=== PATIENT | male | born 1940 | race Caucasian/White ===

== ENCOUNTER 2022-11-24 19:39 | Inpatient (IN) | payer MEDICARE, BC ==
[2022-11-24] MEDS: METOPROLOL TARTRATE 50 MG TAB PO SCH (22:26)
[2022-11-24] MEDS: PREGABALIN 100 MG CAP PO SCH (22:26)
[2022-11-24] MEDS: rOPINIRole HCL 4 MG TABLET PO SCH (22:26)
[2022-11-24] MEDS: CLINDAMYCIN 600 MG in DEXTROSE 5% IN WATER 50 ML IVPB SCH ×2 (22:27)
[2022-11-25] MEDS: AMPICILLIN-SULBACTAM 3 GM in SODIUM CHLORIDE 0.9% 100 ML IVPB SCH ×4 (00:35→23:57)
[2022-11-25] MEDS: HEPARIN SODIUM,PORCINE/PF 5,000 UNIT/0.5 ML SYRINGE SQ SCH ×4 (00:35→23:56)
[2022-11-25] MEDS: CLINDAMYCIN 600 MG in DEXTROSE 5% IN WATER 50 ML IVPB SCH ×6 (06:11→22:54)
[2022-11-25 07:10] LABS: Glucose,Whole Blood 132 mg/dL (70-110)
[2022-11-25] MEDS: PREGABALIN 100 MG CAP PO SCH ×2 (08:50→20:55)
[2022-11-25] MEDS: DOXAZOSIN 2 MG TAB PO SCH ×2 (08:50→20:55)
[2022-11-25] MEDS: FINASTERIDE 5 MG TAB PO SCH (08:51)
[2022-11-25] MEDS: METOPROLOL TARTRATE 50 MG TAB PO SCH ×2 (08:51→20:55)
[2022-11-25 10:01] LABS: Basophils % (A) 1 %; Eosinophils # (A) 0.2 k/uL (0-0.7); Eosinophils % (A) 2 %; HCT 33.3 % (39.0-53.0); Lymphocytes # (A) 1.4 k/uL (1.0-4.8); Lymphocytes % (A) 19 %; MCH 29.5 pg (25.0-35.0); MCHC 33.2 g/dL (31.0-37.0); Mean Platelet Volume 8.3; Monocytes # (A) 0.4 k/uL (0-1.0); Monocytes % (A) 5 %; Neutrophils # (A) 5.3 k/uL (1.3-7.7); Neutrophils % (A) 73 %; Platelet Count 166 k/uL (150-450); RBC 3.74 m/uL (4.30-5.90); RDW 14.1 % (11.5-15.5); WBC 7.3 k/uL (3.8-10.6)
[2022-11-25 10:26] LABS: ALT 29 U/L (4-49); AST 51 U/L (17-59); African American GFR (CKD) 88 (>60 ml/min/1.73 sqM); Albumin 3.6 g/dL (3.5-5.0); Albumin/Globulin Ratio 1.1; Alkaline Phosphatase 64 U/L (38-126); Anion Gap 8 mmol/L; Blood Urea Nitrogen 18 mg/dL (9-20); C Reactive Protein 4.3 mg/dL (<1.0); Calcium 8.5 mg/dL (8.4-10.2); Carbon Dioxide 25 mmol/L (22-30); Chloride 103 mmol/L (98-107); Globulin 3.4 g/dL; Glucose 150 mg/dL (74-99); Non-African American GFR(CKD) 76 (>60 ml/min/1.73 sqM); Sodium 136 mmol/L (137-145); Total Bilirubin 0.9 mg/dL (0.2-1.3)
--- NOTE | 2022-11-25 11:06 | P.CNOR ---
History of Present Illness - HPI Consult date: 11/25/22 History of present illness: This is an 82-year-old male who was transferred from [facility] for management of a left index finger infection. Patient states that he burned the left index finger around Thanksgiving and the wound has not healed. Patient states that last week he had increased swelling in the left hand, but states that the swelling is now only in the left index finger. Patient states that he has only tried topical ointments and has not been on any oral antibiotics. Patient states that he has chronic numbness in both hands and feet so he is not having any pain in the finger. Patient states that he was sent for admission to the hospital by his family doctor on 11/23/2022. Patient's past medical history is significant for atrial fibrillation, hypertension and sleep apnea. Patient is on Coumadin. Patient denies any fever/chills, weakness, tingling, abdominal pain, shortness of breath or chest pain. Review of Systems See HPI. Past Medical History Past Medical History: Atrial Fibrillation, Hypertension, Sleep Apnea/CPAP/BIPAP History of Any Multi-Drug Resistant Organisms: MRSA Year Discovered:: Unkown MDRO Source:: left foot Past Surgical History: Hernia Repair, Orthopedic Surgery Additional Past Surgical History / Comment(s): bilateral knee sx, skin ca removal, back sx Past Anesthesia/Blood Transfusion Reactions: No Reported Reaction Past Psychological History: No Psychological Hx Reported Smoking Status: Never smoker Past Alcohol Use History: None Reported Past Drug Use History: None Reported Medications and Allergies Home Medications Medication Instructions Recorded Confirmed Type Benazepril [Lotensin] 5 mg PO DAILY 11/24/22 11/24/22 History Doxazosin [Cardura] 2 mg PO BID 11/24/22 11/24/22 History Ergocalciferol (Vitamin D2) 1,250 mcg PO QMONTHLY 11/24/22 11/24/22 History [Drisdol (50,000 Iu)] Finasteride [Proscar] 5 mg PO DAILY 11/24/22 11/24/22 History Metoprolol Tartrate [Lopressor] 50 mg PO BID 11/24/22 11/24/22 History Multivit-Min/FA/Lycopen/Lutein 1 tab PO DAILY 11/24/22 11/24/22 History [Centrum Silver Men Tablet] [place]-3/Dha/Epa/Fish Oil [Fish Oil 1 cap PO DAILY@1700 11/24/22 11/24/22 History 1,000 mg Softgel] Potassium Chloride 20 meq PO DAILY 11/24/22 11/24/22 History Pregabalin [Lyrica] 100 mg PO BID 11/24/22 11/24/22 History Warfarin Sodium 6 mg PO DAILY@1700 11/24/22 11/24/22 History rOPINIRole HCL [Requip] 5 mg PO HS 11/24/22 11/24/22 History Allergies Allergy/AdvReac Type Severity Reaction Status Date / Time No Known Allergies Allergy Verified 11/24/22 21:33 Physical Examination On exam patient is sitting in a chair comfortably in no acute distress. There is an open wound with foul-smelling purulent drainage at the distal aspect of the left index finger. There is swelling of the entire left index finger with some erythema and desquamation as well. There is no swelling of the left hand. Patient is able to actively flex and extend the left index finger. Patient has decreased sensation to the fingers of the left hand. Sensation intact to the proximal aspect of the left hand. Results An x-ray report of the left index finger dated 11/23/2022 reveals: There is absence of the soft tissues of the distal tuft of the index finger, with direct exposure of the distal phalanx tuft to the atmosphere. There is associated soft tissue emphysema along the palmar aspect of the distal phalanx tuft. There is extensive soft tissue swelling circumferentially involving the index finger. There are no radiopaque bodies. There is focal osteopenia involving the distal one half the distal phalanx of the index finger, including cam cortical disruption of the components of the tuft, suggesting infection. X-ray images are not available to review yet and are currently being uploaded. - Labs Labs: Abnormal Lab Results - Last 24 Hours (Table) 11/25/22 11/25/22 11/25/22 Range/Units 07:08 09:47 09:47 RBC 3.74 L (4.30-5.90) m/uL Hgb 11.0 L (13.0-17.5) gm/dL Hct 33.3 L (39.0-53.0) % Sodium 136 L (137-145) mmol/L Glucose 150 H (74-99) mg/dL POC Glucose (mg/dL) 132 H (70-110) mg/dL C-Reactive Protein 4.3 H (<1.0) mg/dL H & H 11/25/22 Range/Units 09:47 Hgb 11.0 L (13.0-17.5) gm/dL Hct 33.3 L (39.0-53.0) % Result Diagrams: 11/25/22 09:47 11/25/22 09:47 Assessment and Plan (1) Abscess of right index finger Current Visit: Yes Status: Acute Code(s): L02.511 - CUTANEOUS ABSCESS OF RIGHT HAND SNOMED Code(s): 10100151 Plan: 1. X-ray images are currently being uploaded. 2. Wound care and antibiotic recommendations per infectious disease. 3. Patient's Coumadin is being held. 4. Planning for partial amputation of second digit left hand by Dr. Fleming on 11/26/2022 pending medical clearance and patient consent.
[2022-11-25 11:34] LABS: Glucose,Whole Blood 104 mg/dL (70-110)
[2022-11-25 11:37] LABS: Erythrocyte Sedimentation Rate 52 mm/hr (0-15)
[2022-11-25 17:08] LABS: Glucose,Whole Blood 138 mg/dL (70-110)
[2022-11-25] MEDS: rOPINIRole HCL 4 MG TABLET PO SCH (20:55)
[2022-11-25 21:26] LABS: Glucose,Whole Blood 145 mg/dL (70-110)
--- NOTE | 2022-11-25 23:15 | HP ---
HISTORY AND PHYSICAL CHIEF COMPLAINT: Necrotic abscess, cellulitis, and osteomyelitis of the tip of the left index finger. HISTORY OF PRESENT ILLNESS: This gentleman was transferred from [facility] after he was admitted when he presented to the office for necrosis of soft tissue at the end of the left index finger with secondary infection and osteomyelitis. There was no Hand Surgery available at that institution. Review of systems, past medical history, family history, personal and social histories are all found in detail in his transfer documents. 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 PHYSICAL EXAMINATION: VITAL SIGNS: Blood pressure 131/80 with a pulse of 79, respirations of 20, and he is afebrile. GENERAL: He appeared to be obese, in no acute distress. SKIN: Color is normal. Skin is warm and dry. LYMPHATICS: Lymph nodes are not enlarged. HEAD, EARS, EYES, NOSE, MOUTH AND THROAT: Normal. CHEST: Clear. CARDIAC: Demonstrates atrial fibrillation. ABDOMEN: Soft and nontender. EXTREMITIES: Normal except for the left index finger, which is dressed. NEUROLOGIC: Intact except for right lower extremity drop foot. IMPRESSION: 1. Necrosis of the tip of the left index finger with osteomyelitis and cellulitis. 2. Type 2 diabetes. 3. Atrial fibrillation. 4. Hypertension. 5. 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 PLAN: 1. Bedrest. 2. IV fluids. 3. Consult with Infectious Disease and Surgery. MMODL / IJN: [id number] /
[2022-11-25] MEDS ORDERED: VANCOMYCIN IV PER PHARMACY 1 EACH MISC MISCELLANE PRN (23:41)
--- NOTE | 2022-11-25 23:45 | P.CONS ---
History of Present Illness - Reason for Consult Consult date: 11/25/22 Osteomyelitis Requesting physician: Fabio Fox - Chief Complaint Left index finger wound swelling and redness x weeks - History of Present Illness Patient is a 82-year male with a past medical history pertinent for atrial fibrillation hypertension sleep apnea patient apparently mention he did not have a sensation to his fingertips and apparently bone the left index finger around Thanksgiving and the patient did not have healing of the wound since then over the last 1 week the patient noticed to have increasing swelling in his left hand and significant swelling involving the left index finger and some drainage from the tip of his left index finger patient apparently has been treated with local treatment without any improvement patient was evaluated at [facility] and subsequently patient has been referred to the [facility] to be evaluated by hand surgeon and consult was placed to infectious disease for management of present by therapy patient is currently on combination of clindamycin and Unasyn, as mentioned earlier the patient mention did not have good sensation to his hands hands denies significant pain he did have swelling redness and some drainage but denies have any foul-smelling Review of Systems Positive point has been mentioned in the HPI rest of the systems are negative Past Medical History Past Medical History: Atrial Fibrillation, Hypertension, Sleep Apnea/CPAP/BIPAP History of Any Multi-Drug Resistant Organisms: MRSA Year Discovered:: Unkown MDRO Source:: left foot Past Surgical History: Hernia Repair, Orthopedic Surgery Additional Past Surgical History / Comment(s): bilateral knee sx, skin ca removal, back sx Past Anesthesia/Blood Transfusion Reactions: No Reported Reaction Past Psychological History: No Psychological Hx Reported Smoking Status: Never smoker Past Alcohol Use History: None Reported Past Drug Use History: None Reported Medications and Allergies Home Medications Medication Instructions Recorded Confirmed Type Benazepril [Lotensin] 5 mg PO DAILY 11/24/22 11/24/22 History Doxazosin [Cardura] 2 mg PO BID 11/24/22 11/24/22 History Ergocalciferol (Vitamin D2) 1,250 mcg PO QMONTHLY 11/24/22 11/24/22 History [Drisdol (50,000 Iu)] Finasteride [Proscar] 5 mg PO DAILY 11/24/22 11/24/22 History Metoprolol Tartrate [Lopressor] 50 mg PO BID 11/24/22 11/24/22 History Multivit-Min/FA/Lycopen/Lutein 1 tab PO DAILY 11/24/22 11/24/22 History [Centrum Silver Men Tablet] [place]-3/Dha/Epa/Fish Oil [Fish Oil 1 cap PO DAILY@1700 11/24/22 11/24/22 History 1,000 mg Softgel] Potassium Chloride 20 meq PO DAILY 11/24/22 11/24/22 History Pregabalin [Lyrica] 100 mg PO BID 11/24/22 11/24/22 History Warfarin Sodium 6 mg PO DAILY@1700 11/24/22 11/24/22 History rOPINIRole HCL [Requip] 5 mg PO HS 11/24/22 11/24/22 History Chlorthalidone [Hygroton] 25 mg PO DAILY 11/25/22 11/25/22 History Omeprazole [PriLOSEC] 20 mg PO AC-BRKFST 11/25/22 11/25/22 History Cephalexin [Keflex] 500 mg PO Q6HR 14 Days #56 cap 11/29/22 Rx Allergies Allergy/AdvReac Type Severity Reaction Status Date / Time No Known Allergies Allergy Verified 11/24/22 21:33 Physical Exam Vitals: Vital Signs Temp Pulse Resp BP Pulse Ox 11/25/22 07:11 97.3 F L 78 18 108/64 97 11/25/22 01:37 98.6 F 79 16 99/69 96 11/24/22 22:33 117 H 127/83 11/24/22 19:39 97.5 F L 70 15 109/75 96 Intake and Output 11/24/22 11/25/22 11/25/22 22:59 06:59 14:59 Output Total 200 550 Balance -200 -550 Output: Urine 200 550 Other: Weight 149.5 kg GENERAL DESCRIPTION: An elderly male lying in bed, no distress. No tachypnea or accessory muscle of respiration use. HEENT: Shows Pallor , no scleral icterus. Oral mucous membrane is dry. No pharyngeal erythema or thrush NECK: Trachea central, no thyromegaly. LUNGS: Unlabored breathing. Clear to auscultation anteriorly. No wheeze or crackle. HEART: S1, S2, regular rate and rhythm. No loud murmur ABDOMEN: Soft, no tenderness , guarding or rigidity, no organomegaly EXTREMITIES: Left index finger wound on the tip with swelling redness and drainage which was cultured SKIN: No rash, no masses palpable. NEUROLOGICAL: The patient is awake, alert, oriented x3, mood and affect normal. Results CBC & Chem 7: 11/25/22 09:47 11/29/22 07:20 Labs: Abnormal Lab Results - Last 24 Hours (Table) 11/25/22 Range/Units 07:08 POC Glucose (mg/dL) 132 H (70-110) mg/dL Assessment and Plan (1) Abscess of left index finger Status: Acute Code(s): L02.512 - CUTANEOUS ABSCESS OF LEFT HAND SNOMED Code(s): 85620645 Plan: 1patient presented to hospital with a nonhealing wound to the tip of his left index finger with an injury that he sustained around and has been there for more than 2 months now did have a deep wound with purulent drainage which has been culture and concern for underlying osteomyelitis. 2I did obtain deep culture to guide antibiotic therapy and also obtain blood culture CRP and a sed rate 3-discontinue clindamycin and adjust the dose of Unasyn to 3 g every 6 hours add vancomycin while waiting for the culture to finalize 4-Ortho has seen the patient recommending possible debridement and deep culture in the morning We will follow on clinical condition and cultures to further adjust medication if needed Thank you for this consultation we will follow the patient along with you Time with Patient: Greater than 30
--- NOTE | 2022-11-25 23:46 | PN ---
PROGRESS NOTE CHIEF COMPLAINT: Necrotic soft tissue infection of the tip of the left index finger with osteomyelitis and cellulitis. HISTORY OF PRESENT ILLNESS: This gentleman is comfortable and doing well. He is on IV antibiotics and he is yet to be seen by surgery. PHYSICAL EXAMINATION: CHEST: Clear. CARDIAC: Normal. ABDOMEN: Soft and nontender. EXTREMITIES: Left index finger is dressed. IMPRESSION: Cellulitis, abscess, necrosis, and osteomyelitis of the left index finger. PLAN: Continue with IV fluids and antibiotics and await. Consult from Hand Surgery and Infectious Disease. MMODL / IJN: [id number] /
[2022-11-26] MEDS ORDERED: VANCOMYCIN 2,500 MG in SODIUM CHLORIDE 0.9% 500 ML 500 ML IVPB ONE (01:00)
[2022-11-26] MEDS: AMPICILLIN-SULBACTAM 3 GM in SODIUM CHLORIDE 0.9% 100 ML IVPB SCH ×4 (06:06→23:56)
[2022-11-26 07:10] LABS: Glucose,Whole Blood 119 mg/dL (70-110)
[2022-11-26] MEDS ORDERED: LIDOCAINE 2% INJ 20 MG/ML (2 ML VIAL) ONE (08:05)
[2022-11-26] MEDS ORDERED: PHENYLEPHRINE-0.9% NACL SYG 1,000 MCG/10 ML SYRINGE ONE (08:05)
[2022-11-26] MEDS ORDERED: ONDANSETRON 4 MG/2 ML VIAL ONE (08:05)
[2022-11-26] MEDS ORDERED: PROPOFOL 10 MG/ML 20 ML VIAL IV ONE (08:05)
[2022-11-26] MEDS ORDERED: LACTATED RINGERS 1,000 ML IV ONE ×2 (08:10→08:31)
[2022-11-26] MEDS ORDERED: BUPIVACAINE (PF) 0.25% 30 ML VIAL SQ ONE (08:34)
[2022-11-26] MEDS ORDERED: ACETAMINOPHEN IV (For NPO) 1,000 MG/100 ML VIAL IVPB ONE (09:24)
[2022-11-26] MEDS: HEPARIN SODIUM,PORCINE/PF 5,000 UNIT/0.5 ML SYRINGE SQ SCH ×3 (09:40→23:56)
[2022-11-26] MEDS: DOXAZOSIN 2 MG TAB PO SCH ×2 (10:11→21:23)
[2022-11-26] MEDS: PREGABALIN 100 MG CAP PO SCH ×2 (10:12→21:23)
[2022-11-26] MEDS: FINASTERIDE 5 MG TAB PO SCH (10:12)
[2022-11-26] MEDS: METOPROLOL TARTRATE 50 MG TAB PO SCH ×2 (10:12→21:23)
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
[2022-11-26 11:13] LABS: Glucose,Whole Blood 190 mg/dL (70-110)
[2022-11-26] MEDS ORDERED: HYDROmorphone 0.5 MG/0.5 ML SYRINGE IVP PRN ×3 (11:13)
[2022-11-26] MEDS ORDERED: ONDANSETRON 4 MG/2 ML VIAL IVP PRN (11:13)
[2022-11-26] MEDS ORDERED: HYDROcodone/APAP 5-325MG 1 EACH TAB PO PRN ×2 (11:13)
[2022-11-26] MEDS ORDERED: diphenhydrAMINE 25 MG CAP PO PRN (11:13)
[2022-11-26] MEDS: VANCOMYCIN 2,500 MG in SODIUM CHLORIDE 0.9% 500 ML 500 ML IVPB SCH (13:11)
[2022-11-26 17:14] LABS: Glucose,Whole Blood 126 mg/dL (70-110)
--- NOTE | 2022-11-26 17:43 | P.PN ---
Subjective Progress Note Date: 11/26/22 Principal diagnosis: Left index finger tip infection Patient is a 82-year male with a past medical history pertinent for atrial fibrillation hypertension sleep apnea patient apparently mention he did not have a sensation to his fingertips, presented to the hospital with a nonhealing wound to the tip of his left index finger in this patient who is status post amputation of the distal phalanx by orthopedics completed 11/26/2022 On today's evaluation that is 11/26/2022, the patient denies having any fever or any chills, the patient denies pain to his left index finger denies any chest pain shortness of breath or cough no abdominal pain no diarrhea Objective - Vital Signs Vital signs: Vital Signs Temp 97.1 F L 11/26/22 09:01 Pulse 65 11/26/22 09:16 Resp 16 11/26/22 09:16 BP 127/72 11/26/22 09:16 Pulse Ox 96 11/26/22 09:16 FiO2 Intake & Output 11/25/22 11/26/22 11/26/22 18:59 06:59 18:59 Intake Total 500 Output Total 200 10 Balance -200 490 Intake: IV 500 Output: Urine 200 Estimated Blood Loss 10 Other: # Voids 1 # Bowel Movements 1 - Exam GENERAL DESCRIPTION: An elderly male lying in bed in no distress RESPIRATORY SYSTEM: Unlabored breathing , decreased breath sounds at bases HEART: S1 S2 regular rate and rhythm , ABDOMEN: Soft , no tenderness EXTREMITIES: Left index finger distal phalanx amputation site wound is currently dressed no drainage on the dressing - Labs CBC & Chem 7: 11/25/22 09:47 11/25/22 09:47 Labs: Abnormal Lab Results - Last 24 Hours (Table) 11/25/22 11/25/22 11/25/22 Range/Units 09:47 09:47 09:47 RBC 3.74 L (4.30-5.90) m/uL Hgb 11.0 L (13.0-17.5) gm/dL Hct 33.3 L (39.0-53.0) % ESR 52 H (0-15) mm/hr Sodium 136 L (137-145) mmol/L Glucose 150 H (74-99) mg/dL POC Glucose (mg/dL) (70-110) mg/dL Hemoglobin A1c 6.5 H (0.0-6.0) % C-Reactive Protein 4.3 H (<1.0) mg/dL 11/25/22 11/25/22 11/26/22 Range/Units 17:07 21:23 07:09 RBC (4.30-5.90) m/uL Hgb (13.0-17.5) gm/dL Hct (39.0-53.0) % ESR (0-15) mm/hr Sodium (137-145) mmol/L Glucose (74-99) mg/dL POC Glucose (mg/dL) 138 H 145 H 119 H (70-110) mg/dL Hemoglobin A1c (0.0-6.0) % C-Reactive Protein (<1.0) mg/dL Microbiology - Last 24 Hours (Table) 11/25/22 09:50 Wound Culture - Preliminary Finger - Left Second Assessment and Plan (1) Abscess of left index finger Current Visit: Yes Status: Acute Code(s): L02.512 - CUTANEOUS ABSCESS OF LEFT HAND SNOMED Code(s): 59137149 Plan: 1patient presented to hospital with a nonhealing wound to the tip of his left index finger with an injury that he sustained around and has been there for more than 2 months now did have a deep wound with purulent drainage which has been culture and concern for underlying osteomyelitis. 2patient is status post amputation of the distal phalanx with infected part removed and the patient remains to be afebrile may not need long-term IV antibiotics, this was explained to the family at the bedside 3Patient to continue with Unasyn to 3 g every 6 hours add vancomycin while waiting for the culture to finalize Time with Patient: Less than 30
[2022-11-26] MEDS: rOPINIRole HCL 4 MG TABLET PO SCH (21:23)
[2022-11-26 21:35] LABS: Glucose,Whole Blood 118 mg/dL (70-110)
--- NOTE | 2022-11-27 00:41 | PN ---
PROGRESS NOTE CHIEF COMPLAINT: Abscess necrosis of the left index finger with osteomyelitis. HISTORY OF PRESENT ILLNESS: This gentleman was taken to the operating room today for a resection of a portion of the end of the index finger with flap formation. PHYSICAL EXAMINATION: CHEST: Clear. CARDIAC: Normal. ABDOMEN: Protuberant, soft, and nontender. IMPRESSION: Osteomyelitis, cellulitis, and abscess of the left distal index finger. PLAN: Continue with IV antibiotics and postop management. He will probably have to be in the hospital for another day or 2 and might be a candidate for long-term IV antibiotics as an outpatient. MMODL / IJN: [id number] /
[2022-11-27] MEDS: VANCOMYCIN 2,500 MG in SODIUM CHLORIDE 0.9% 500 ML 500 ML IVPB SCH ×2 (01:32→13:59)
[2022-11-27] MEDS: AMPICILLIN-SULBACTAM 3 GM in SODIUM CHLORIDE 0.9% 100 ML IVPB SCH ×4 (06:14→23:27)
[2022-11-27 07:46] LABS: Glucose,Whole Blood 111 mg/dL (70-110)
[2022-11-27] MEDS: METOPROLOL TARTRATE 50 MG TAB PO SCH ×2 (09:16→20:29)
[2022-11-27] MEDS: HEPARIN SODIUM,PORCINE/PF 5,000 UNIT/0.5 ML SYRINGE SQ SCH ×3 (09:16→23:27)
[2022-11-27] MEDS: FINASTERIDE 5 MG TAB PO SCH (09:16)
[2022-11-27] MEDS: PREGABALIN 100 MG CAP PO SCH ×2 (09:17→20:29)
[2022-11-27] MEDS: DOXAZOSIN 2 MG TAB PO SCH ×2 (09:17→20:29)
--- NOTE | 2022-11-27 10:24 | P.PN ---
Subjective Progress Note Date: 11/27/22 Principal diagnosis: Osteomyelitis left index finger. Status post amputation through middle phalanx left index finger. This is an 82-year-old male who is status post amputations through the middle phalanx of the left index finger for wet gangrene and osteomyelitis to the distal phalanx. He is doing well from an orthopedic standpoint. He has no new complaints or concerns today. Vital signs are stable. Objective - Vital Signs Vital signs: Vital Signs Temp 97.6 F 11/27/22 07:17 Pulse 95 11/27/22 07:17 Resp 18 11/27/22 07:17 BP 107/55 11/27/22 07:17 Pulse Ox 97 11/27/22 07:17 FiO2 Intake & Output 11/26/22 11/27/22 11/27/22 18:59 06:59 18:59 Intake Total 600 450 Output Total 10 Balance 590 450 Intake: IV 600 Oral 450 Output: Estimated Blood Loss 10 Other: # Voids 2 3 # Bowel Movements 1 1 - Exam This is a pleasant 82-year-old male in no acute distress. He is alert and oriented 3. Exam of the left hand feels that his incision to the index finger looks good. There is mild resolving erythema to the finger. He has full flexion to the PIP and MCP joints. Normal motion to the ring fingers. There is a burn noted to the fingers on the right hand. No erythema noted. He has decreased sensation to the finger secondary to neuropathy. - Labs CBC & Chem 7: 11/25/22 09:47 11/25/22 09:47 Labs: Abnormal Lab Results - Last 24 Hours (Table) 11/26/22 11/26/22 11/26/22 Range/Units 11:11 17:13 21:16 POC Glucose (mg/dL) 190 H 126 H 118 H (70-110) mg/dL 11/27/22 Range/Units 07:30 POC Glucose (mg/dL) 111 H (70-110) mg/dL Microbiology - Last 24 Hours (Table) 11/26/22 08:56 Fungal Culture - Preliminary Finger - Left Second 11/26/22 08:56 Anaerobic Culture - Preliminary Finger - Left Second 11/26/22 08:56 Tissue Culture - Preliminary Finger - Left Second 11/26/22 08:56 Acid Fast Bacilli Culture - Preliminary Finger - Left Second 11/25/22 09:47 Blood Culture - Preliminary Blood No Growth after 24 hours Assessment and Plan (1) Status post amputation of finger of left hand Current Visit: Yes Status: Acute Code(s): Z89.022 - ACQUIRED ABSENCE OF LEFT FINGER(S) SNOMED Code(s): 04216387025461025 (2) Abscess of left index finger Current Visit: Yes Status: Acute Code(s): L02.512 - CUTANEOUS ABSCESS OF LEFT HAND SNOMED Code(s): 62212031 Plan: The clinical findings are discussed with the patient. He will continue daily dr yasiring changes to the left index finger. It is recommended he have wound care evaluation to the right hand for the burn. He may be discharged to home from an orthopedic standpoint. He is follow-up in 10 days.
[2022-11-27 11:13] LABS: Glucose,Whole Blood 174 mg/dL (70-110)
[2022-11-27 12:13] LABS: African American GFR (CKD) 71.1 (60.0-200.0); Non-African American GFR(CKD) 61.3 (60.0-200.0)
--- NOTE | 2022-11-27 12:32 | P.PN ---
Subjective Progress Note Date: 11/27/22 Principal diagnosis: Left index finger tip infection Patient is a 82-year male with a past medical history pertinent for atrial fibrillation hypertension sleep apnea patient apparently mention he did not have a sensation to his fingertips, presented to the hospital with a nonhealing wound to the tip of his left index finger in this patient who is status post amputation of the distal phalanx by orthopedics completed 11/26/2022 On today's evaluation that is 11/27/2022, the patient remains to be afebrile, the patient denies pain to his left index finger distal phalanx amputation site, the patient denies any chest pain shortness of breath or cough no abdominal pain no diarrhea Objective - Vital Signs Vital signs: Vital Signs Temp 97.6 F 11/27/22 07:17 Pulse 95 11/27/22 07:17 Resp 18 11/27/22 07:17 BP 107/55 11/27/22 07:17 Pulse Ox 97 11/27/22 07:17 FiO2 Intake & Output 11/26/22 11/27/22 11/27/22 18:59 06:59 18:59 Intake Total 600 450 Output Total 10 Balance 590 450 Intake: IV 600 Oral 450 Output: Estimated Blood Loss 10 Other: # Voids 2 3 # Bowel Movements 1 1 - Exam GENERAL DESCRIPTION: An elderly male lying in bed in no distress RESPIRATORY SYSTEM: Unlabored breathing , decreased breath sounds at bases HEART: S1 S2 regular rate and rhythm , ABDOMEN: Soft , no tenderness EXTREMITIES: Left index finger distal phalanx amputation site wound is currently dressed no drainage on the dressing, review of Ortho-Note mention incision site looks clean - Labs CBC & Chem 7: 11/25/22 09:47 11/27/22 06:46 Labs: Abnormal Lab Results - Last 24 Hours (Table) 11/26/22 11/26/22 11/26/22 Range/Units 11:11 17:13 21:16 POC Glucose (mg/dL) 190 H 126 H 118 H (70-110) mg/dL 11/27/22 Range/Units 07:30 POC Glucose (mg/dL) 111 H (70-110) mg/dL Microbiology - Last 24 Hours (Table) 11/26/22 08:56 Fungal Culture - Preliminary Finger - Left Second 11/26/22 08:56 Anaerobic Culture - Preliminary Finger - Left Second 11/26/22 08:56 Tissue Culture - Preliminary Finger - Left Second 11/26/22 08:56 Acid Fast Bacilli Culture - Preliminary Finger - Left Second 11/25/22 09:47 Blood Culture - Preliminary Blood No Growth after 24 hours Assessment and Plan (1) Abscess of left index finger Current Visit: Yes Status: Acute Code(s): L02.512 - CUTANEOUS ABSCESS OF LEFT HAND SNOMED Code(s): 39154479 Plan: 1patient presented to hospital with a nonhealing wound to the tip of his left index finger with an injury that he sustained around and has been there for more than 2 months now did have a deep wound with purulent drainage which has been culture and concern for underlying osteomyelitis. 2patient is status post amputation of the distal phalanx with infected part removed and the cultures are currently pending 3Patient to continue with Unasyn to 3 g every 6 hours add vancomycin while waiting for the culture to finalize, to determine his discharge antibiotics Time with Patient: Less than 30
[2022-11-27 17:16] LABS: Glucose,Whole Blood 151 mg/dL (70-110)
[2022-11-27 20:27] LABS: Glucose,Whole Blood 165 mg/dL (70-110)
[2022-11-27] MEDS: rOPINIRole HCL 4 MG TABLET PO SCH (20:29)
[2022-11-28] MEDS: VANCOMYCIN 2,500 MG in SODIUM CHLORIDE 0.9% 500 ML 500 ML IVPB SCH (01:52)
[2022-11-28] MEDS: AMPICILLIN-SULBACTAM 3 GM in SODIUM CHLORIDE 0.9% 100 ML IVPB SCH ×2 (06:14→11:48)
[2022-11-28 06:57] LABS: Glucose,Whole Blood 114 mg/dL (70-110)
[2022-11-28] MEDS: DOXAZOSIN 2 MG TAB PO SCH ×2 (08:42→20:44)
[2022-11-28] MEDS: HEPARIN SODIUM,PORCINE/PF 5,000 UNIT/0.5 ML SYRINGE SQ SCH ×3 (08:42→23:48)
[2022-11-28] MEDS: PREGABALIN 100 MG CAP PO SCH ×2 (08:43→20:44)
[2022-11-28] MEDS: FINASTERIDE 5 MG TAB PO SCH (08:43)
[2022-11-28] MEDS: METOPROLOL TARTRATE 50 MG TAB PO SCH ×2 (08:44→20:44)
[2022-11-28 11:04] LABS: Glucose,Whole Blood 211 mg/dL (70-110)
[2022-11-28] MEDS ORDERED: VANCOMYCIN TROUGH DUE 1 EACH MISC MISCELLANE ONE (12:00)
[2022-11-28 17:13] LABS: Glucose,Whole Blood 179 mg/dL (70-110)
[2022-11-28 20:32] LABS: Glucose,Whole Blood 119 mg/dL (70-110)
[2022-11-28] MEDS: rOPINIRole HCL 4 MG TABLET PO SCH (20:44)
--- NOTE | 2022-11-28 22:42 | P.PN ---
Subjective Progress Note Date: 11/28/22 Principal diagnosis: Left index finger tip infection Patient is a 82-year male with a past medical history pertinent for atrial fibrillation hypertension sleep apnea patient apparently mention he did not have a sensation to his fingertips, presented to the hospital with a nonhealing wound to the tip of his left index finger in this patient who is status post amputation of the distal phalanx by orthopedics completed 11/26/2022 On today's evaluation that is 11/28/2022, the patient continues to be afebrile, the patient denies pain to his left index finger distal phalanx amputation site, the patient denies any chest pain shortness of breath or cough no abdominal pain no diarrhea, feeling better no new symptoms Objective - Vital Signs Vital signs: Vital Signs Temp 97.5 F L 11/28/22 07:22 Pulse 64 11/28/22 07:22 Resp 18 11/28/22 07:22 BP 106/73 11/28/22 07:22 Pulse Ox 95 11/28/22 07:22 FiO2 Intake & Output 11/27/22 11/28/22 11/28/22 18:59 06:59 18:59 Intake Total 400 Output Total 900 Balance -500 Intake: Oral 400 Output: Urine 900 Other: # Voids 1 3 # Bowel Movements 1 1 1 - Exam GENERAL DESCRIPTION: An elderly male lying in bed in no distress RESPIRATORY SYSTEM: Unlabored breathing , decreased breath sounds at bases HEART: S1 S2 regular rate and rhythm , ABDOMEN: Soft , no tenderness EXTREMITIES: Left index finger distal phalanx amputation site wound is currently stitched minimal swelling no redness or drainage - Labs CBC & Chem 7: 11/25/22 09:47 11/28/22 06:56 Labs: Abnormal Lab Results - Last 24 Hours (Table) 11/27/22 11/27/22 11/27/22 Range/Units 11:08 17:11 20:04 POC Glucose (mg/dL) 174 H 151 H 165 H (70-110) mg/dL 11/28/22 Range/Units 06:55 POC Glucose (mg/dL) 114 H (70-110) mg/dL Microbiology - Last 24 Hours (Table) 11/26/22 08:56 Gram Stain - Preliminary Finger - Left Second Tissue Culture - Preliminary Presumptive Staph aureus 11/25/22 09:50 Gram Stain - Preliminary Finger - Left Second Wound Culture - Preliminary Presumptive Staph aureus 11/25/22 09:47 Blood Culture - Preliminary Blood No Growth after 48 hours 11/26/22 08:56 Fungal Culture - Preliminary Finger - Left Second 11/26/22 08:56 Anaerobic Culture - Preliminary Finger - Left Second 11/26/22 08:56 Acid Fast Bacilli Culture - Preliminary Finger - Left Second Assessment and Plan (1) Abscess of left index finger Current Visit: Yes Status: Acute Code(s): L02.512 - CUTANEOUS ABSCESS OF LEFT HAND SNOMED Code(s): 34877957 Plan: 1patient presented to hospital with a nonhealing wound to the tip of his left index finger with an injury that he sustained around and has been there for more than 2 months now did have a deep wound with purulent drainage which has been culture and concern for underlying osteomyelitis. 2patient is status post amputation of the distal phalanx with infected part removed and the cultures are currently growing staph aureus with sensitivities pending 3Patient to continue with Unasyn to 3 g every 6 hours and vancomycin while waiting for the culture to finalize, discharge antibiotics on the basis of final cultures Time with Patient: Less than 30
[2022-11-29 07:08] LABS: Glucose,Whole Blood 110 mg/dL (70-110)
[2022-11-29] MEDS: HEPARIN SODIUM,PORCINE/PF 5,000 UNIT/0.5 ML SYRINGE SQ SCH ×2 (08:39→15:14)
--- NOTE | 2022-11-29 08:42 | CDI ---
Documentation Clarification Form Date: 11/29/2022 From: Makenzie Torres RN,CCDS Admit Date: 11/24/2022 7:39:00 PM Patient Name: Brandt Ricks Visit Number: [id number] Discharge Date: ATTENTION: The Clinical Documentation Specialists (CDI) and [facility] Coding Staff appreciate your assistance in clarifying documentation. Please respond to the clarification below the line at the bottom and electronically sign. The CDI & [facility] Coding staff will review the response and follow-up if needed. Please note: Queries are made part of the Legal Health Record. If you have any questions, please contact the author of this message via ITS. Dr. Luis Fleming Osteomyelitis is documented in the progress note starting 11/27/22. Additional clarification regarding the cause and acuity of the osteomyelitis is requested. 11/24 Vital signs: 109/74 70 15 97.5 96 % RA History/Risk Factors: Atrial Fibrillation, Hypertension, Sleep apnea Clinical Indicators: 82-year-old male states he burned the left index finger around Thanksgiving, wound has not healed. 11/25Labs: WBC 7.3 HGB 11.0, ESR 52, [id number] Protein 4.3 X-Ray Results: (orthopedic consult 11/25/22) left index finger dated 11/23/2022: There is absence of the soft tissues of the distal tuft of the index finger, with direct exposure of the distal phalanx tuft to the atmosphere. There is associated soft tissue emphysema along the palmar aspect of the distal phalanx tuft. There is focal osteopenia involving the distal one half the distal phalanx of the index finger, including cam cortical disruption of the components of the tuft, suggesting infection. Treatment: Left index finger amputation through middle phalanx Cefazolin Sodium 2 GM IVPB Q 8 HRS 11/28 Vancomycin HCL 2,500MG IVPB Once PTD 11/26-11/26 change to 2,000MG IVPB Q 12 11/26-11/28 Silvadene Cream topical daily 11/27-11/28 Clindamycin Phosphate 600MG IVPB Q8HR 11/24-11/25 Unasyn3 GM IVPB Q8 HR 11/25-11/28 Please clarify the acuity of the osteomyelitis, if known: Acuity: [ ] Acute osteomyelitis [ ] Chronic osteomyelitis [ x ] Subacute osteomyelitis [ ] Unable to Determine (Template Last Revised: December 2020) MTDD
--- NOTE | 2022-11-29 09:18 | CDI ---
Documentation Clarification Form Date: 11/29/2022 9:07:29 AM From: Makenzie Torres RN, CCDS Admit Date: 11/24/2022 7:39:00 PM Patient Name: Brandt Ricks Visit Number: [id number] Discharge Date: ATTENTION: The Clinical Documentation Specialists (CDI) and [facility] Coding Staff appreciate your assistance in clarifying documentation. Please respond to the clarification below the line at the bottom and electronically sign. The CDI & [facility] Coding staff will review the response and follow-up if needed. Please note: Queries are made part of the Legal Health Record. If you have any questions, please contact the author of this message via ITS. Dr. Fabio Fox Atrial Fibrillation is documented past medial history H/P and subsequent progress notes. Additional clarification regarding the type of atrial fibrillation is requested. History/Risk Factors: Atrial fibrillation, Type 2 Diabetes Mellitus, Hypertension Clinical Indicators: 82-year-old male present with necrosis, abscess of soft tissue at the end of the left index finger with secondary infection and osteomyelitis. He has a history of atrial fibrillation with ongoing treatment. Treatment: Coumadin (held per orders) Please clarify the type of atrial fibrillation, if known: [ ] Chronic [ ] Permanent [ ] Paroxysmal [ ] Persistent [ ] Other, please specify [ ] Unable to determine (Template Last Revised: February 2021) MISCELLANOUS REPORT Chronic atrial fibrillation. MMODL / IJN: [id number] / Dictated By: Fabio Fox MD Signed By: DD/ 09 TD/TT:01/12/236 [employer]ision Dyer: BONI LEON
[2022-11-29] MEDS: PREGABALIN 100 MG CAP PO SCH (09:22)
[2022-11-29] MEDS: FINASTERIDE 5 MG TAB PO SCH (09:22)
[2022-11-29] MEDS: METOPROLOL TARTRATE 50 MG TAB PO SCH (09:22)
[2022-11-29] MEDS: DOXAZOSIN 2 MG TAB PO SCH (09:23)
[2022-11-29 11:19] LABS: Glucose,Whole Blood 95 mg/dL (70-110)
[2022-11-29 12:19] LABS: African American GFR (CKD) 79.7 (60.0-200.0); Non-African American GFR(CKD) 68.8 (60.0-200.0)
[2022-11-29 15:00] VITALS: BP 107/69; PULSE 66; RESP 14; TEMP 97.3
--- NOTE | 2022-12-01 11:30 | DS ---
DISCHARGE SUMMARY CHIEF COMPLAINT: Cellulitis and abscess with osteomyelitis of the tip of the left index finger. HISTORY OF PRESENT ILLNESS AND PHYSICAL EXAMINATION: Details of this man's history and physical can be found in the initial workup. LABORATORY STUDIES: While he was in the hospital, he had laboratory studies, details of which can be found in the laboratory section of his chart. COURSE IN THE HOSPITAL: After admission, he was placed on bedrest, started on intravenous fluids and IV antibiotics. He was seen by Infectious Disease and Surgery. He was eventually taken for revision of the end of the left index finger, whereby the distal tip of the distal phalanx was removed. Flap was formed. Postoperatively, he did well with no fever, chills, bleeding, significant pain, etc. It is felt that he could go home on the 8th on antibiotics and will be followed up in the office. FINAL DIAGNOSES: 1. Abscess, cellulitis and osteomyelitis of the tip of the left index finger. 2. Diet controlled type 2 diabetes mellitus. 3. Osteoarthritis of the spine with radiculopathy. 4. Atrial fibrillation. OPERATIONS: Partial amputation of the distal left index finger with revision. CONSULTATIONS: Infectious Disease and Orthopedics. He is improved. MMODL / IJN: [id number] /
--- NOTE | 2022-12-01 19:54 | PN ---
PROGRESS NOTE DATE OF SERVICE: 11/27/2022 CHIEF COMPLAINT: Osteomyelitis of the left index finger. HISTORY OF PRESENT ILLNESS: This gentleman is doing fairly well and he is not having any particular difficulty. PHYSICAL EXAMINATION: GENERAL: He is afebrile. CHEST: Clear. CARDIAC: Normal. IMPRESSION: Cellulitis and osteomyelitis of the tip of the left index finger. PLAN: Continue with IV antibiotics and local wound attention and he is being followed by Infectious Disease and Surgery. MMODL / IJN: [id number] /
--- NOTE | 2022-12-01 23:00 | PN ---
PROGRESS NOTE DATE OF SERVICE: 11/28/2022 CHIEF COMPLAINT: Osteomyelitis of the left index finger. HISTORY OF PRESENT ILLNESS: This gentleman is doing well. He is not having a great deal of pain. The tip of the finger appears to be quite viable and there is no drainage. PHYSICAL EXAMINATION: CHEST: Clear. CARDIAC: Normal. ABDOMEN: Soft, nontender. IMPRESSION: Osteomyelitis into the left index finger, status post resection and flap formation. PLAN: He will continue on antibiotics and will be discharged soon. Infectious Disease will decide if he goes home on IV antibiotics or oral. MMODL / IJN: [id number] /
--- NOTE | 2022-12-06 22:16 | P.PN ---
Subjective Progress Note Date: 11/29/22 Principal diagnosis: Left index finger tip infection Patient is a 82-year male with a past medical history pertinent for atrial fibrillation hypertension sleep apnea patient apparently mention he did not have a sensation to his fingertips, presented to the hospital with a nonhealing wound to the tip of his left index finger in this patient who is status post amputation of the distal phalanx by orthopedics completed 11/26/2022 On today's evaluation that is 11/29/2022, the patient remains to be afebrile, the patient denies pain to his left index finger distal phalanx amputation site, the patient denies any chest pain shortness of breath or cough no abdominal pain no diarrhea, Objective - Vital Signs Vital signs: Vital Signs Temp 97.4 F L 11/29/22 01:12 Pulse 84 11/29/22 01:12 Resp 18 11/29/22 01:12 BP 100/57 11/29/22 01:12 Pulse Ox 97 11/29/22 01:12 FiO2 Intake & Output 11/28/22 11/29/22 11/29/22 18:59 06:59 18:59 Intake Total 100 Balance 100 Intake: Intake, IV Titration 100 Amount ceFAZolin 2 gm In Sodium 100 Chloride 0.9% 50 ml @ 100 mls/hr IVPB Q8HR [facility] Rx# :[id number] Other: # Voids 3 # Bowel Movements 1 - Exam GENERAL DESCRIPTION: An elderly male lying in bed in no distress RESPIRATORY SYSTEM: Unlabored breathing , decreased breath sounds at bases HEART: S1 S2 regular rate and rhythm , ABDOMEN: Soft , no tenderness EXTREMITIES: Left index finger distal phalanx amputation site wound is intact swelling redness improved no drainage - Labs CBC & Chem 7: 11/25/22 09:47 11/29/22 07:20 Labs: Abnormal Lab Results - Last 24 Hours (Table) 11/28/22 11/28/22 11/28/22 Range/Units 11:03 17:12 20:30 POC Glucose (mg/dL) 211 H 179 H 119 H (70-110) mg/dL Microbiology - Last 24 Hours (Table) 11/26/22 08:56 Acid Fast Bacilli Smear - Final Finger - Left Second Acid Fast Bacilli Culture - Preliminary 11/25/22 09:47 Blood Culture - Preliminary Blood No Growth after 72 hours 11/25/22 09:50 Gram Stain - Final Finger - Left Second Wound Culture - Final Staphylococcus aureus 11/26/22 08:56 Gram Stain - Preliminary Finger - Left Second Tissue Culture - Preliminary Presumptive Staph aureus Assessment and Plan (1) Abscess of left index finger Status: Acute Code(s): L02.512 - CUTANEOUS ABSCESS OF LEFT HAND SNOMED Code(s): 61216272 Plan: 1patient presented to hospital with a nonhealing wound to the tip of his left index finger with an injury that he sustained around and has been there for more than 2 months now did have a deep wound with purulent drainage which has been culture and concern for underlying osteomyelitis. 2patient is status post amputation of the distal phalanx with infected part removed and the cultures are currently growing MSSA 3patient seemed to have shown clinical improvement will be able to finish therapy with oral Keflex prescription sent to the pharmacy and close outpatient follow-up Time with Patient: Less than 30
--- NOTE | 2023-01-12 04:25 | MISC ---
MISCELLANOUS REPORT Chronic atrial fibrillation. MMODL / IJN: [id number] /
== END 2022-11-29 17:38 | disposition home or self-care (01) | DRG 256 ==
LOC: 5NMEDONC 19:39
PROVIDERS: ADMIT Family Medicine; ATTEND Family Medicine
PROC: 0X6P0Z2 Detachment at Left Index Finger, Mid, Open Approach (ICD-10-PCS; principal; 2022-11-26 08:00)
DX: E11.52 Type 2 diabetes mellitus with diabetic peripheral angiopathy with gangrene (principal); I48.20 Chronic atrial fibrillation, unspecified; L02.512 Cutaneous abscess of left hand; M86.9 Osteomyelitis, unspecified; E11.42 Type 2 diabetes mellitus with diabetic polyneuropathy; E11.69 Type 2 diabetes mellitus with other specified complication; M21.371 Foot drop, right foot; I10 Essential (primary) hypertension; L03.012 Cellulitis of left finger; M47.9 Spondylosis, unspecified; M54.10 Radiculopathy, site unspecified; Z79.899 Other long term (current) drug therapy; Z79.01 Long term (current) use of anticoagulants; G47.30 Sleep apnea, unspecified; Z86.14 Personal history of Methicillin resistant Staphylococcus aureus infection; Z85.828 Personal history of other malignant neoplasm of skin; Z28.311 Partially vaccinated for COVID-19
CPT/HCPCS: 80053; 80202; 82565; 83036; 85025; 85652; 86140; 87040; 87070; 87075; 87077; 87102; 87116; 87186; 87205; 87206